=== PATIENT | female | born 1940 | race American Indian/Alaskan Native ===

== ENCOUNTER 2017-04-30 08:27 | Outpatient (CLI) | payer MEDICARE ==
--- NOTE | 2017-04-30 09:19 | Mammography Report ---
Bilateral digital screening mammogram with CAD. Comparison study is dated May 03, 2014. Findings: There is heterogeneous density of the fibroglandular tissue. In the upper medial left breast, there is an ovoid shaped parenchymal asymmetry measuring less than 1 cm in diameter not well-seen on the previous study. In the medial right breast, there is a focal area of possible architectural distortion not seen on MLO view. No suspicious calcifications are seen. Impression: Left parenchymal l asymmetry and possible right architectural distortion. BI-RADS code: Zero. Recommendation: Bilateral spot compression images, 90 degree views, and ultrasound if needed.
== END 2017-04-30 08:28 | disposition home or self-care (01) ==
LOC: MAMMO 08:27
PROVIDERS: ATTEND Internal Medicine
DX: Z12.31 Encounter for screening mammogram for malignant neoplasm of breast (principal)
CPT/HCPCS: 77067; G0202

== ENCOUNTER 2017-05-14 08:51 | Outpatient (CLI) | payer MEDICARE ==
--- NOTE | 2017-05-14 09:51 | Mammography Report ---
Bilateral mammogram: Based on recent screening examination additional spot compression imaging of both breasts were performed in addition to roll CC views of the right breast. Comparison is made to prior studies dating back to 2013. The discrete nodule on the left side has an eccentric lucency and is well-circumscribed with no calcifications. No significant change identified when compared to studies dating back to 2013. The architectural change in the medial left breast also appears similar to 2013. Impressions: The findings appear stable bilaterally. The nodule on the left most likely is a lymph node and the findings on the right and no overtly suspicious characteristics. Recommendation: Annual followup mammogram. BI-RADS CATEGORY: 2 = Benign ACR BI-RADS MAMMOGRAPHIC CODES: 0 = Needs additional imaging evaluation; 1 = Negative; 2 = Benign; 3 = Probably benign; 4 = Suspicious; 5 = Malignant; 6 = Known biopsy-proven malignancy COMMENT: 1. Dense breast tissue, i.e., adenosis, fibrocystic changes, etc., may obscure an underlying neoplasm. 2. Approximately 10% of cancers are not detected with mammography. 3. A negative mammography report should not delay biopsy if a clinically suspicious mass is present.
== END 2017-05-14 08:52 | disposition home or self-care (01) ==
LOC: MAMMO 08:51
PROVIDERS: ATTEND Internal Medicine
DX: N63 Unspecified lump in breast (principal)
CPT/HCPCS: 77066; G0204

== ENCOUNTER 2017-09-09 18:11 | Emergency (ER) | payer MEDICARE ==
[2017-09-09 19:05] LABS: Basophils % (Auto) 0.6 % (0.0-1.8); Eosinophils # (Auto) 0.1 K/mm3 (0.0-0.4); Eosinophils % (Auto) 2.4 % (0.0-4.3); Hematocrit 36.4 % (30.3-42.9); Hemoglobin 11.5 gm/dl (10.1-14.3); Mean Corpuscular HGB Conc 32 % (30-34); Mean Corpuscular Volume 71 fl (79-97); Monocytes # (Auto) 0.8 K/mm3 (0.0-0.8); Monocytes % (Auto) 13.9 % (0.0-7.3); Platelet Count 321 K/mm3 (140-440); Red Blood Count 5.16 M/mm3 (3.65-5.03); Red Cell Distribution Width 14.9 % (13.2-15.2)
[2017-09-09 19:07] LABS: BUN/Creatinine Ratio 23; Blood Urea Nitrogen 18 mg/dL (7-17); Calcium 9.7 mg/dL (8.4-10.2); Hemolysis Index 0
[2017-09-09 19:12] LABS: Mean Corpuscular Hemoglobin 22 pg (28-32)
[2017-09-10 06:45] LABS: Bilirubin,Urine NEG (Negative); Blood,Urine SM (Negative); Color,Urine Yellow (Yellow); Mucus,Urine 1+ /HPF; Nitrite,Urine NEG (Negative); Protein,Urine <15 mg/dL mg/dL (Negative)
--- NOTE | 2017-09-10 07:55 | Emergency Department Report ---
HPI - General Chief Complaint: Urogenital-Female Time Seen by Provider: 09/10/17 07:37 - HPI HPI: Room 6 The patient is a 77-year-old female presenting with a chief complaint of decreased by mouth intake. The patient was brought in by family who states that the patient lately has not been eating drinking or urinating. Patient denies pain of any type, fever nausea vomiting or diarrhea. When asked how she is feeling the patient replies she feels "fine." Location: [See above] Duration: [See above] Quality: [See above] Severity: [See above] Modifying factors: [see above] Context: [see above] Mode of transportation: [not driving] ED Past Medical Hx - Past Medical History Previous Medical History?: Yes Hx Hypertension: Yes Hx CVA: Yes - Surgical History Past Surgical History?: Yes Additional Surgical History: hysterectomy, right knee - Family History Family history: no significant - Social History Smoking Status: Current Some Day Smoker Substance Use Type: None ED Review of Systems ROS: Stated complaint: NOT URINATING Other details as noted in HPI Eyes: denies: eye pain ENT: denies: throat pain Cardiovascular: denies: chest pain Gastrointestinal: denies: abdominal pain, nausea, vomiting, diarrhea Genitourinary: denies: dysuria Musculoskeletal: denies: back pain Neurological: denies: headache Physical Exam - Physical Exam Vital Signs: Vital Signs 09/09/17 09/10/17 09/10/17 18:22 04:07 05:44 Temperature 97.3 F L 97.7 F 97.9 F Pulse Rate 91 H 95 H Respiratory 16 18 Rate Blood Pressure 158/71 141/99 Blood Pressure [Left] O2 Sat by Pulse 96 Oximetry 09/10/17 06:45 Temperature 98.2 F Pulse Rate 74 Respiratory 19 Rate Blood Pressure Blood Pressure 144/80 [Left] O2 Sat by Pulse 96 Oximetry Physical Exam: GENERAL: The patient is well-developed well-nourished female lying on stretcher not appearing to be in acute distress. [] HEENT: Normocephalic. Atraumatic. Extraocular motions are intact. Patient has moist mucous membranes. NECK: Supple. Trachea midline CHEST/LUNGS: Clear to auscultation. There is no respiratory distress noted. HEART/CARDIOVASCULAR: Regular. There is no tachycardia. There is no gallop rub or murmur. ABDOMEN: Abdomen is soft, nontender. Patient has normal bowel sounds. There is no abdominal distention. SKIN: There is no rash. There is no edema. There is no diaphoresis. NEURO: The patient is awake, alert, and oriented. The patient is cooperative. The patient has normal speech MUSCULOSKELETAL:There is no evidence of acute injury. ED Course Vital Signs 09/09/17 09/10/17 09/10/17 18:22 04:07 05:44 Temperature 97.3 F L 97.7 F 97.9 F Pulse Rate 91 H 95 H Respiratory 16 18 Rate Blood Pressure 158/71 141/99 Blood Pressure [Left] O2 Sat by Pulse 96 Oximetry 09/10/17 06:45 Temperature 98.2 F Pulse Rate 74 Respiratory 19 Rate Blood Pressure Blood Pressure 144/80 [Left] O2 Sat by Pulse 96 Oximetry - Reevaluation(s) Reevaluation #1: 09/10/17 13:05 Family states they do not wish to wait any longer for mental health consult - Consultations Consultation #1: 09/10/17 07:57 Dr. Strong pagecale ED Medical Decision Making - Lab Data Result diagrams: 09/09/17 18:35 09/09/17 18:35 Laboratory Tests 09/09/17 09/09/17 09/10/17 18:35 18:35 06:29 WBC 5.9 RBC 5.16 H Hgb 11.5 Hct 36.4 MCV 71 L MCH 22 L MCHC 32 RDW 14.9 Plt Count 321 Lymph % (Auto) 34.0 [place] % (Auto) 13.9 H Eos % (Auto) 2.4 Baso % (Auto) 0.6 Lymph # 2.0 [place] # 0.8 Eos # 0.1 Baso # 0.0 Seg Neutrophils % 49.1 Seg Neutrophils # 2.9 Sodium 141 Potassium 4.7 Chloride 98.5 Carbon Dioxide 27 Anion Gap 20 BUN 18 H Creatinine 0.8 Estimated GFR > 60 BUN/Creatinine Ratio 23 Glucose 114 H Calcium 9.7 Urine Color Yellow Urine Turbidity Clear Urine pH 5.0 Ur Specific [place] 1.023 Urine Protein <15 mg/dl Urine Glucose (UA) Neg Urine Ketones Neg Urine Blood Sm Urine Nitrite Neg Urine Bilirubin Neg Urine Urobilinogen 2.0 Ur Leukocyte Esterase Tr Urine WBC (Auto) 3.0 Urine RBC (Auto) 2.0 Urine Mucus 1+ - Radiology Data Radiology results: report reviewed (CT head), image reviewed (CT head) CT HEAD WITHOUT CONTRAST: HISTORY: Not eating. TECHNIQUE: Sequential CT images without contrast. FINDINGS: Images obtained show bilateral prominence of the sulci and ventricles. There are no abnormal intra- or extra-axial blood or fluid collections. There are no focal masses or evidence of mass effect. The winter white matter differentiation appears within normal limits. Regions of periventricular decreased attenuation are consistent with microangiopathic ischemic disease. Chronic infarct in the right basal ganglia measures up to 2 cm. Chronic infarct in the left cheney radiata measures up to 1 cm. The posterior fossa structures including the fourth ventricle, cerebellum, and brainstem appear normal. IMPRESSION: Evidence of atrophy and microangiopathic ischemic disease. Chronic focal infarcts. No acute intracranial process noted. Transcribed By: TTR Dictated By: MABLE ELLINGTON JR, MD Electronically Authenticated By: MABLE ELLINGTON JR, MD Signed Date/Time: 09/10/17 1045 DD/ 1044 TD/TT: 09/10/17 1045 - Differential Diagnosis dementia, anorexia Critical care attestation.: If time is entered above; I have spent that time in minutes in the direct care of this critically ill patient, excluding procedure time. ED Disposition Clinical Impression: Decreased appetite Disposition: DC-01 TO HOME OR SELFCARE Is pt being admited?: No Does the pt Need Aspirin: No Condition: Stable Additional Instructions: Return to the emergency department immediately should you develop worsening symptoms, fever, inability to tolerate food or liquid or any other concerns. Referrals: KIRAN STRONG MD [Primary Care Provider] - 3-5 Days Time of Disposition: 13:05
[2017-09-10 08:51] VITALS: BP 124/74
--- NOTE | 2017-09-10 11:03 | Cat Scan Report ---
CT HEAD WITHOUT CONTRAST: HISTORY: Not eating. TECHNIQUE: Sequential CT images without contrast. FINDINGS: Images obtained show bilateral prominence of the sulci and ventricles. There are no abnormal intra- or extra-axial blood or fluid collections. There are no focal masses or evidence of mass effect. The winter white matter differentiation appears within normal limits. Regions of periventricular decreased attenuation are consistent with microangiopathic ischemic disease. Chronic infarct in the right basal ganglia measures up to 2 cm. Chronic infarct in the left cheney radiata measures up to 1 cm. The posterior fossa structures including the fourth ventricle, cerebellum, and brainstem appear normal. IMPRESSION: Evidence of atrophy and microangiopathic ischemic disease. Chronic focal infarcts. No acute intracranial process noted.
--- NOTE | 2017-09-10 13:51 | Consultation ---
History of Present Illness - Reason for Consult Consult date: 09/10/17 Reason for consult: Mental Health Evaluation Requesting physician: KYLEE TERRAZAS - Chief Complaint Chief complaint: "I eat what I like" - History of Present Psychiatric Illness The patient is a 77-year-old female presenting to [facility] for decreased oral intake. Today the patient is calm and cooperative during the assessment. She stated that her appetite isn't where it used to be. She stated that she eat what she like, but sometimes she can't finish the entire meal. She stated that she would eat shrimp and drink tea later today if she had the chance. Throughout the interview, the patient was lucid with her answers and logical. She was able to ID the current/past [place] Presidents, tell me her , and state her current location when asked. She stated that she spends time with family members often. She denies feeling hopeless, helpless, sad when asked. She denies AVH's. She denies recreational drug use and alcohol consumption (etoh). Medications and Allergies Allergies Allergy/AdvReac Type Severity Reaction Status Date / Time No Known Allergies Allergy Unverified 05/03/14 14:27 Past psychiatric history - Past Medical History Past Medical History: hypertension Past Surgical History: No surgical history - past Psychiatric treatment and history psychiatric treatment history: Denies a psy hx and a fam psy hx. - Social History Social history: lives with family Mental Status Exam - Vital signs Last Vital Signs Temp 98.6 F 09/10/17 08:57 Pulse 76 09/10/17 09:16 Resp 15 09/10/17 09:16 BP 124/74 09/10/17 09:16 Pulse Ox 97 09/10/17 08:50 - Exam Narrative exam: MSE: Appearance: calm, cooperative Behavior: regular eye contact Speech: regular rate and tone Mood: "fine" Affect: congruent to mood Thought Process: linear Thought Content: denies SI/HI's and AVH's Motor Activity: ambulatory Cognition: A/O x 3 Insight: fair Judgment: fair Results Result Diagrams: 09/09/17 18:35 09/09/17 18:35 Abnormal lab results 09/09/17 09/09/17 Range/Units 18:35 18:35 RBC 5.16 H (3.65-5.03) M/mm3 MCV 71 L (79-97) fl MCH 22 L (28-32) pg [place] % (Auto) 13.9 H (0.0-7.3) % BUN 18 H (7-17) mg/dL Glucose 114 H (65-100) mg/dL All other labs normal. Assessment and Plan Assessment and plan: Impression: No overt psychosis with this patient. The patient denies being helpless, hopeless, and sad. Today the patient is calm and cooperative during the assessment. Patient's labs didn't indicate any infection. Recommendation/Plan: Patient can follow-up with her PCP once discharged.
== END 2017-09-10 13:57 | disposition home or self-care (01) ==
LOC: ED 18:11
DX: R63.0 Anorexia (principal); I10 Essential (primary) hypertension; Z86.73 Personal history of transient ischemic attack (TIA), and cerebral infarction without residual deficits; F17.200 Nicotine dependence, unspecified, uncomplicated
CPT/HCPCS: 36415; 70450; 80048; 81001; 85025